=== PATIENT | male | born 1960 | race Two or more races ===

== ENCOUNTER → 2020-06-30 10:15 | Outpatient (CLI) | payer MEDICAID, SELFPAY ==
[2020-06-30 13:37] LABS: Coronavirus 19 IgG Antibody Positive (Negative); Coronavirus 19 IgM Antibody Negative (Negative)
== END ==
PROVIDERS: Visit Provider Internal Medicine Gastroenterology
DX: Z01.812 Encounter for preprocedural laboratory examination (principal); Z20.822 Contact with and (suspected) exposure to COVID-19; Z12.11 Encounter for screening for malignant neoplasm of colon
CPT/HCPCS: 36415; 86328

== ENCOUNTER 2020-07-02 08:21 | Day surgery (SDC) | payer MEDICAID, SELFPAY ==
[2020-06-29 12:40] VITALS: BMI 24.9
[2020-07-02 08:41] VITALS: BP 165/84; PULSE 97; RESP 18; TEMP 36.4; O2SAT 98
[2020-07-02 09:48] VITALS: O2SAT 96
--- NOTE | 2020-07-02 10:16 | P.PCN_ITS ---
[facility] Procedure Note Procedure Note:: Colonoscopy Procedure Report: Colonoscopy with cold snare polypectomy Endoscopist: Dustin Tran II, MD Referring physician: ALIA Odonnell Date of Procedure: July 02, 2020 Equipment: Olympus 190 variable stiffness pediatric colonoscope Sedation: MAC sedation Indication: Mr. Coleman is a 59-year-old gentleman who is here for initial screening colonoscopy. 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 He reports no abdominal pain, weight loss, change in his bowel habits or rectal bleeding. He reports no family history of colon cancer. Procedure: Prior to the procedure, a history and physical exam was performed, and patient's medications and allergies were reviewed. The risks, benefits and alternatives of the sedation and procedure were discussed with the patient. All questions were answered and informed consent was obtained. The patient was brought to the procedure room. Patient identification and proposed procedure were verified by the physician and the nurse. The patient was placed in a left lateral decubitus position and the scope was passed under direct vision. Throughout the procedure, the patient's blood pressure, pulse, and oxygen saturations were monitored continuously. The colonoscopy was accomplished without difficulty. The patient tolerated the procedure well. Findings: On digital rectal examination there was normal rectal tone. There were no external hemorrhoids. The prostate was 2-3+ with a firm nodule in the left upper margin/left upper lobe of the prostate. The colonoscope was introduced through the anal canal to the rectum and advanced to the cecum. The ileocecal valve and appendiceal orifice were identified. The scope was advanced a short distance into the ileum which appeared grossly normal. The scope was then withdrawn into the colon. The cecum, ascending and transverse colon and mucosa were grossly normal. There were 4 colon polyps (descending x2 (5 and 9 mm) and sigmoid x2 (3 and 6 mm)) which were all removed via cold snare polypectomy. An Endo Clip was placed over the polypectomy site of the largest polyp because of some minor oozing. There were scattered diverticuli throughout the descending and sigmoid colon (LEFT colon). The rectum itself was normal. Upon retroflexion within the rectum there were grade 1-2 internal hemorrhoids. The preparation was fair throughout with [place] Preparation Score of 7 out of 9. The cecal time was 12 minutes. Impression: 1. Colonic polyps x4 2. Left-sided diverticulosis 3. Grade 1-2 internal hemorrhoids 4. Prostate nodule (left upper lobe margin) Plan: I will follow up the size and polyp pathology and recommend repeat colonoscopy again in 3-5 years based upon the adenomatous polyp histology. I would consider Movantik or Relistor (for opiate-induced constipation) and I would recommend a fiber bowel regimen (combined MiraLAX plus Metamucil) on a long-term daily maintenance basis. Lastly, the prostate nodule is suspicious. Regardless of PSA, he does need to see urology. I will check diagnostic PSA today. I will refer to urology Dr. Hiren Bolanos.
[2020-07-02 10:18] VITALS: BP 129/68; PULSE 82; RESP 16; TEMP 36.5; O2SAT 97
[2020-07-02 10:28] VITALS: BP 111/70; PULSE 87; RESP 16; O2SAT 100
[2020-07-02 10:38] VITALS: BP 116/76; BP 119/79; PULSE 70; PULSE 77; RESP 16; TEMP 36.5; O2SAT 96; O2SAT 97
[2020-07-02 12:08] LABS: Prostate Specific Ag, Diagnost 2.79 ng/ml (0.0-4.0)
--- NOTE | 2020-07-02 15:29 | HMH.ANESCL ---
[facility] Anesthesia Checklist - Patient Identification Patient Identification: Arm Band - Structural Data Admitted From: Home Planned Operative Procedure/s: Colonoscopy Consent for Planned Operative Procedure(s) Verified: Yes Verified Documents: Surgical Consent, History and Physical - NPO Status Verified Time NPO: 00:00 - Airway Assessment C-Spine Mobility Assessed: Yes TMJ Mobility Assessed: Yes Dentition: Good Dentition - Anesthesia Plan Anesthesia Risk discussed: Yes Anesthesia Plan: Verified ASA Class: III Anesthesia Type: MAC [facility] History Medical History: Denies:: Cancer, Diabetes Mellitus Type 1, Diabetes Mellitus Type 2, Internal Pacemaker, MRSA, Seizures *Have you ever received a pneumonia vaccine?: Yes *Have you received a flu vaccine this season?: Yes Anesthesia experience/problems:: None Laterality Cases: Left: Arthroscopy Knee Other Surgeries: No: Pacemaker Amputation: No - *Social History Last grade of school completed: 9th or 10th Smoking Status: Current every day smoker Tobacco Type: cigarettes # Packs/Day (cigarettes): 1 Alcohol Intake: never Substance Use Type: former substance user, opiates Last Used Substance: days (ago) *Occupational Status:: unemployed Household Members: family *Travel in the last 8 weeks: None Family Hx:: No significant family history
== END 2020-07-02 11:06 | disposition home or self-care (01) ==
LOC: OUTP 08:23
PROVIDERS: PCP Nurse Practitioner; Visit Provider Internal Medicine Gastroenterology
PROC: 0DJD8ZZ Inspection of Lower Intestinal Tract, Via Natural or Artificial Opening Endoscopic (ICD-10-PCS; CPT 45378; principal; 2020-07-02 09:30)
DX: Z12.11 Encounter for screening for malignant neoplasm of colon (principal); K63.5 Polyp of colon; K57.30 Diverticulosis of large intestine without perforation or abscess without bleeding; K64.0 First degree hemorrhoids; N40.2 Nodular prostate without lower urinary tract symptoms; Z72.0 Tobacco use; Z87.39 Personal history of other diseases of the musculoskeletal system and connective tissue; F11.11 Opioid abuse, in remission; Z79.899 Other long term (current) drug therapy
CPT/HCPCS: 45385; 84153

== ENCOUNTER → 2020-07-13 13:37 | Outpatient (CLI) | payer MEDICAID, SELFPAY | PROVIDERS: Visit Provider Urology | DX: Z20.822 Contact with and (suspected) exposure to COVID-19 (principal) | CPT/HCPCS: U0003 ==

== ENCOUNTER 2020-07-16 08:04 | Day surgery (SDC) | payer MEDICAID, SELFPAY ==
[2020-07-10 14:00] VITALS: BMI 25.4
[2020-07-16 09:10] VITALS: BP 147/72; PULSE 84; RESP 18; TEMP 36.8; O2SAT 98
--- NOTE | 2020-07-16 10:43 | HMH.ANESCL ---
[facility] Anesthesia Checklist - Structural Data Admitted From: Home Planned Operative Procedure/s: prostate bx Consent for Planned Operative Procedure(s) Verified: Yes - Additional verifications Anesthesia Reactions: No Hx Blood Transfusions: No Blood Transfusion Reaction: No - Airway Assessment C-Spine Mobility Assessed: Yes TMJ Mobility Assessed: Yes Dentition: Edentulous - Neurological Assessment Level of Consciousness: Awake, Alert, Appropriate - Anesthesia Plan Anesthesia Risk discussed: Yes Anesthesia Plan: Verified ASA Class: II Anesthesia Type: MAC [facility] History I have reviewed the patient's past medical history: Yes Medical History: Denies:: Cancer, Diabetes Mellitus Type 1, Diabetes Mellitus Type 2, Internal Pacemaker, MRSA, Seizures *Have you ever received a pneumonia vaccine?: No *Have you received a flu vaccine this season?: Yes Other Medical History: Reports: Arthritis. Denies: Blood Transfusion Reaction Anesthesia experience/problems:: none Laterality Cases: Left: Arthroscopy Knee Other Surgeries: Yes: No Previous Surgery, Colonoscopy, Hernia Repair. No: Pacemaker Amputation: No Fractures: No - *Social History Last grade of school completed: High school graduate Smoking Status: Current every day smoker Tobacco Type: cigarettes # Packs/Day (cigarettes): 1 Alcohol Intake: never Substance Use Type: opiates *Occupational Status:: unemployed Household Members: family *Travel in the last 8 weeks: None Family Hx:: Cancer
[2020-07-16 10:55] VITALS: BP 106/58; PULSE 77; RESP 18; TEMP 36.6; O2SAT 93
[2020-07-16 11:15] VITALS: BP 100/59; PULSE 78; RESP 18; O2SAT 98
--- NOTE | 2020-07-16 12:49 | P.OP_ITS ---
Date of procedure: 07/16/20 Pre-op Diagnosis:: Left prostate nodule Post-op Diagnosis:: Same Procedure performed:: Prostate biopsy with transrectal ultrasound guidance Surgeon:: Hiren Bolanos MD TELEPHONE OPERATOR RECEPTIONIST:: Marshall Tang Anesthesia: MAC Estimated blood loss (mL): 0 Clinical Note:: 59-year-old white male with prostate nodule noted at the time of the colono scopy. Digital rectal examination did confirm the nodule but is PSA is normal. He presents today for transrectal ultrasound prostate biopsy. Operative findings:: Prostate was measured at only 7.5 cm?. 3 biopsies taken from the right and 4 biopsies from the left including through the nodular area. Operative note:: Patient taken to the operating room after informed consent was obtained. He was placed on the operating room table in the left lateral decubitus position and monitored anesthesia care administered. His legs were placed in the physician with a pillow between his legs. Patient had performed preoperative oral antibiotics and an enema by report. The transrectal ultrasound probe was placed into the rectum without difficulty and the prostate easily visualized. It was very small and was measured at 7.5 cm?. There was a hypoechoic lesion noted in the left prostate. No calcifications were noted. Local anesthesia was placed into the neurovascular bundles bilaterally. 3 biopsies then taken from the patient's right side 4 biopsies from the left side including through the nodular area. Specimens were sent off and the biopsy probe removed. Patient tolerated procedure well there are no complications. Condition: stable Disposition: same day Specimens:: Prostate biopsies x7 Complications:: None
== END 2020-07-16 11:30 | disposition home or self-care (01) ==
PROVIDERS: PCP Nurse Practitioner Family; Visit Provider Urology
PROC: (CPT 55700; principal; 2020-07-16 10:30)
DX: C61 Malignant neoplasm of prostate (principal); Z80.9 Family history of malignant neoplasm, unspecified; Z87.891 Personal history of nicotine dependence; F11.11 Opioid abuse, in remission
CPT/HCPCS: 55700; 76942

== ENCOUNTER → 2020-08-08 11:35 | Outpatient (CLI) | payer MEDICAID, SELFPAY | PROVIDERS: Visit Provider Urology | DX: C61 Malignant neoplasm of prostate (principal); Z01.812 Encounter for preprocedural laboratory examination; Z11.52 Encounter for screening for COVID-19 | CPT/HCPCS: U0003 ==

== ENCOUNTER 2020-08-10 08:42 | Day surgery (SDC) | payer MEDICAID, SELFPAY ==
[2020-08-07 09:51] VITALS: BMI 26.5
[2020-08-10 08:55] VITALS: BP 121/73; PULSE 81; RESP 16; TEMP 36.8; O2SAT 97
[2020-08-10 09:30] VITALS: BP 124/73; PULSE 78; RESP 16; TEMP 36.6; O2SAT 94
--- NOTE | 2020-08-10 10:59 | HMH.OPNOTE ---
Date of procedure: 08/10/20 Pre-op Diagnosis:: Prostate cancer Post-op Diagnosis:: Same Procedure performed:: Transrectal ultrasound with placement of gold fiducials x4 Surgeon:: Hiren Bolanos MD Anesthesia: local Estimated blood loss (mL): 0 Clinical Note:: Patient is a 59-year-old white male with recently diagnosed prostate cancer. He has been referred to radiation oncology and has seen Dr. Velasquez at [facility]. He is set to undergo CyberKnife therapy and presents today for placement of gold fiducials. Operative findings:: Prostate was measured at 7.5 cm?. Good placement of 4 markers was performed. Operative note:: Patient taken to the operating room after informed consent was obtained. He was placed on the operating table in the left lateral decubitus position. He had performed preoperative oral antibiotics and enema. The transrectal ultrasound probe was placed into the rectum and the prostate was visualized easily. It was measured and the volume again was small at 7.5 cm?. Local anesthetic was placed into each neurovascular bundle and 4 gold markers were then placed into the left apex right apex {}. Transrectal sound probe was then removed. Patient tolerated the procedure well with no complications. Condition: stable Disposition: same day Specimens:: None Complications:: None
== END 2020-08-10 09:30 | disposition home or self-care (01) ==
LOC: OR 08:44
PROVIDERS: PCP Nurse Practitioner Family; Visit Provider Urology
PROC: (CPT 55876; principal; 2020-08-10 09:00)
DX: C61 Malignant neoplasm of prostate (principal); M19.90 Unspecified osteoarthritis, unspecified site; Z72.0 Tobacco use; Z80.9 Family history of malignant neoplasm, unspecified; F19.11 Other psychoactive substance abuse, in remission; Z79.899 Other long term (current) drug therapy
CPT/HCPCS: 55876; 76942

== ENCOUNTER → 2020-12-10 14:20 | Outpatient (CLI) | payer MEDICAID, SELFPAY ==
[2020-12-10 16:12] LABS: Prostate Specific Ag, Diagnost 0.352 ng/ml (0.0-4.0)
== END ==
PROVIDERS: Visit Provider Urology
DX: C61 Malignant neoplasm of prostate (principal)
CPT/HCPCS: 36415; 84153

== ENCOUNTER → 2021-04-26 14:47 | Outpatient (CLI) | payer MEDICAID, SELFPAY | PROVIDERS: Visit Provider Urology | DX: C61 Malignant neoplasm of prostate (principal) | CPT/HCPCS: 36415; 84153 ==

== ENCOUNTER → 2021-11-06 09:46 | Outpatient (CLI) | payer MEDICAID, SELFPAY ==
[2021-11-06 12:15] LABS: Prostate Specific Ag, Diagnost 0.227 ng/ml (0.0-4.0)
== END ==
PROVIDERS: Visit Provider Urology
DX: C61 Malignant neoplasm of prostate (principal)
CPT/HCPCS: 36415; 84153